=== PATIENT | male | born 1955 | race African-American/Black ===

== ENCOUNTER 2017-02-11 05:24 | Emergency (ER) | payer MEDICARE, MEDICAID ==
[~2017-02-11] VITALS: Ht 175.3 cm; Wt 108.0 kg
[2017-02-11 05:24] VITALS: BP 0/0
[2017-02-11] MEDS ORDERED: SODIUM BICARBONATE 7.5% 0.9 MEQ/ML 50ML SYR IV ONE (06:00)
[2017-02-11] MEDS ORDERED: EPINEPHRINE 0.1MG/ML (1:10,000) 10ML SYR ONE (06:00)
== END 2017-02-11 07:56 | disposition expired ==
LOC: ER 05:30
DX: I46.9 Cardiac arrest, cause unspecified (principal); E11.9 Type 2 diabetes mellitus without complications; I10 Essential (primary) hypertension
CPT/HCPCS: 92960; 99285; J0171; J3490